=== PATIENT | female | born 1980 | race Caucasian/White ===

== ENCOUNTER 2018-10-04 18:47 | Emergency (ER) | payer MEDICAID, OTHER ==
[~2018-10-04] VITALS: Ht 157.5 cm; Wt 61.7 kg
[2018-10-04 19:11] VITALS: Ht 157.5 cm; Wt 61.7 kg
[2018-10-04] MEDS ORDERED: morphine 4 MG/ML VIAL IV STA (19:19)
[2018-10-04] MEDS ORDERED: SODIUM CHLORIDE 0.9% 1L BAG IV* STA (19:19)
[2018-10-04] MEDS ORDERED: KETOROLAC 15 MG INJ IV STA (19:19)
[2018-10-04] MEDS ORDERED: ONDANSETRON 4 MG INJ IV STA (19:19)
[2018-10-04] MEDS ORDERED: ACETAMINOPHEN 325 MG TAB PO STA (19:19)
[2018-10-04] MEDS ORDERED: CEFTRIAXONE 1 GM/50 ML (PMX) 50 ML IVPB ONE (19:30)
--- NOTE | 2018-10-04 19:41 | ERD ---
ER Documentation Chief Complaint Chief Complaint C/O WORSENING LT FLANK PAIN, LYN AND FEVER X3 DAYS HPI During the patient's encounter translation services were utilized Language: [place] Source: In person this is a 38-year-old female remote history of pyelonephritis who presents to the emergency room with 4 days of symptoms including dysuria urgency and frequency now with constant left flank pain that is 8 out of 10. Associated fever. Mild headache and mild nausea noted. No rash, no neck stiffness. She denies any cough or shortness of breath, no pleuritic pain. She denies any right lower quadrant abdominal pain. ROS All systems reviewed and are negative except as per history of present illness. Medications Home Meds Active Scripts Ciprofloxacin Hcl* (Ciprofloxacin Hcl*) 500 Mg Tablet, 500 MG PO BID for 10 Days, TAB Prov:FAUSTINO MINAYA MD 10/04/18 Ibuprofen* (Motrin*) 800 Mg Tab, 800 MG PO Q6H PRN for PAIN AND OR ELEVATED TEMP, #30 TAB Prov:FAUSTINO MINAYA MD 10/04/18 Ondansetron (Ondansetron Odt) 4 Mg Tab.rapdis, 4 MG PO Q6H PRN for NAUSEA AND/OR VOMITING, #10 TAB Prov:FAUSTINO MINAYA MD 10/04/18 Hydrocodone/Acetaminophen ([place] 5-325 Tablet) 1 Each Tablet, 1 TAB PO Q6H PRN for PAIN, #7 TAB Prov:FAUSTINO MINAYA MD 10/04/18 Allergies Allergies: Coded Allergies: No Known Allergy (Unverified , 10/04/18) FmHx Family History: No diabetes Physical Exam Vitals Vital Signs Date Temp Pulse Resp B/P (MAP) Pulse Ox O2 O2 Flow FiO2 Time Delivery Rate 10/04/18 99.1 100 19 103/67 99 Room Air 22:13 (79) 10/04/18 100.4 97 19 105/74 99 Room Air 20:58 (84) 10/04/18 99.9 108 22 105/78 98 Room Air 19:59 (87) 10/04/18 103.0 19:30 10/04/18 103.7 122 22 104/61 99 19:11 (75) Physical Exam General: Uncomfortable, tearful, hyperventilating Head: Normocephalic, atraumatic. Eyes: Pupils equally reactive, EOM intact ENT: Moist mucous membranes Neck: Supple, no lymphadenopathy Respiratory: Lungs clear bilaterally, no distress Cardiovascular: Tachy, no murmurs, rubs, or gallops Abdominal: Soft, non-tender, non-distended, no peritoneal signs Back: Left CVAT : Deferred MSK: No edema, no unilateral swelling, 5/5 strength Neurologic: Alert and oriented, moving all extremities, normal speech, no focal weakness, no cerebellar signs Skin: No rash Psych: Normal mood Result Diagram: 10/04/18192710/04/181927 Results 24 hrs Laboratory Tests Test 10/04/18 19:28 10/04/18 19:30 10/04/18 19:37 10/04/18 21:58 White Blood Count 8.4 10^3/ul Red Blood Count 4.74 10^6/ul Hemoglobin 13.1 g/dl Hematocrit 40.4 % Mean Corpuscular 85.2 fl Volume Mean Corpuscular 27.6 pg Hemoglobin Mean Corpuscular 32.4 g/dl Hemoglobin Concent Red Cell 13.7 % Distribution Width Platelet Count 236 10^3/UL Mean Platelet 9.1 fl Volume Immature 0.200 % Granulocytes % Neutrophils % 85.6 % Lymphocytes % 9.1 % Monocytes % 4.5 % Eosinophils % 0.2 % Basophils % 0.4 % Nucleated Red 0.0 /100WBC Blood Cells % Immature 0.020 10^3/ul Granulocytes # Neutrophils # 7.2 10^3/ul Lymphocytes # 0.8 10^3/ul Monocytes # 0.4 10^3/ul Eosinophils # 0.0 10^3/ul Basophils # 0.0 10^3/ul Nucleated Red 0.0 10^3/ul Blood Cells # Urine Color YELLOW Urine Clarity CLEAR Urine pH 7.0 Urine Specific 1.017 [place] Urine Ketones NEGATIVE mg/dL Urine Nitrite NEGATIVE mg/dL Urine Bilirubin NEGATIVE mg/dL Urine Urobilinogen 1+ mg/dL Urine Leukocyte 1+ Rachael/ul Esterase Urine Microscopic 8 /HPF RBC Urine Microscopic 45 /HPF WBC Urine Squamous FEW /HPF Epithelial Cells Urine Bacteria FEW /HPF Urine Hemoglobin 1+ mg/dL Urine Glucose NEGATIVE mg/dL Urine Total NEGATIVE mg/dl Protein Sodium Level 141 mmol/L Potassium Level 4.0 mmol/L Chloride Level 106 mmol/L Carbon Dioxide 24 mmol/L Level Anion Gap 11 Blood Urea 9 mg/dl Nitrogen Creatinine 0.70 mg/dl Est Glomerular > 60 mL/min Filtrat Rate mL/min Glucose Level 106 mg/dl Calcium Level 9.6 mg/dl Total Bilirubin 2.0 mg/dl Direct Bilirubin 0.00 mg/dl Indirect Bilirubin 2.0 mg/dl Aspartate Amino 26 IU/L Transf (AST/SGOT) Alanine 16 IU/L Aminotransferase ( ALT/SGPT) Alkaline 76 IU/L Phosphatase Total Protein 8.4 g/dl Albumin 4.3 g/dl Globulin 4.10 g/dl Albumin/Globulin 1.04 Ratio Lipase 314 U/L POC Venous Lactate 1.8 mmol/L POC Beta HCG, NEGATIVE Qualitative Lactic Acid Level 0.9 mmol/L Current Medications Medications Dose Sig/Jessa Start Time Status Last (Trade) Ordered Route PRN Stop Time Admin Dose Reason Admin Sodium 1,850 ml BOLUS OVER 2 10/04/18 DC 10/04/18 Chloride HOURS STAT : 19:30 (NS) IV* 10/04/18 19:21 650 mg ONCE STAT 10/04/18 DC 10/04/18 Acetaminophen PO 19:19 19:30 (Tylenol 10/04/18 19:21 Tab) Morphine 4 mg ONCE STAT 10/04/18 DC 10/04/18 Sulfate IV 19:19 19:30 (morphine) 10/04/18 19:21 Ondansetron 4 mg ONCE STAT 10/04/18 DC 10/04/18 HCl (Zofran IV 19:19 19:30 Inj) 10/04/18 19:21 Ceftriaxone 50 ml @ ONCE ONCE 10/04/18 DC 10/04/18 Sodium 100 mls/hr IVPB 19:30 19:33 10/04/18 19:59 Ketorolac 15 mg ONCE STAT 10/04/18 DC 10/04/18 Tromethamine IV 19:19 19:36 (Toradol) 10/04/18 19:21 0.5 mg ONCE STAT 10/04/18 DC 10/04/18 Hydromorphone IV 19:43 19:47 HCl 10/04/18 19:44 (Dilaudid) Lorazepam 0.5 mg ONCE ONCE 10/04/18 DC 10/04/18 (Ativan) IV 20:00 19:56 10/04/18 20:01 0.5 mg ONCE STAT 10/04/18 DC 10/04/18 Hydromorphone IV 21:13 21:18 HCl 10/04/18 21:15 (Dilaudid) Procedures/MDM EKG, MONITORS, & DIAGNOSTIC IMAGING: EKG: I reviewed and interpreted a 12-lead EKG. Rhythm: Normal sinus rhythm ST Changes: No contiguous ST segment elevations T waves: No contiguous T wave inversions Impression: No evidence of acute cardiac ischemia LAB INTERPRETATION: I reviewed the laboratory testing and it shows urinalysis consistent with UTI. Nonspecific bilirubin elevation but nonobstructive hepatobiliary profile. Lipase is 300, nonspecific. MEDICAL DECISION MAKING: Patient's presentation is very consistent with acute pyelonephritis. The patient has urinary symptoms with constant left flank pain and CVAT. No colicky pain to suggest ureteral colic. Patient has Sirs criteria with possible source. A code sepsis was called from triage. Patient will receive appropriate fluid resuscitation, antipyretics, blood cultures prior to antibiotics. A dose of ceftriaxone provided. If the patient's symptoms are improving and her laboratory testing is reassuring outpatient treatment would be appropriate given her age and limited comorbidities. ER COURSE: * Laboratory testing was suggestive of urinary tract infection. Low concern for hepatobiliary process. The patient's pain is left flank and consistent with urinary process rather than hepatobiliary process. Patient's pain improved with fluids and pain medication. First dose of ceftriaxone provided. * At this point the patient will likely do well on an outpatient basis. Pain is well controlled. CONSULTATION: None DISPOSITION PLAN: The patient does not have an identifiable emergent medical condition that warrants inpatient hospitalization at this time. The patient is deemed safe for discharge with outpatient follow-up. We discussed follow up with the patient's primary care doctor within 24 to 48 hours as needed. We also discussed return to the emergency room for worsening symptoms or worsening condition. Outpatient referral: None required Discharge Medications: Cipro, [place], Zofran, Motrin NARCOTIC MEDICATION: The patient has been prescribed a narcotic medication during this encounter. The patient has been warned about the use of narcotics. The patient should not drive or operate heavy machinery while taking this medication. The patient was also warned about the addictive properties of narcotic medications. Narcan prescription was NOT provided given the following criteria: 1. No more than 5 tablets of [place] 10 mg or 10 tablets of [place] 5 mg were prescribed. 2. Concomitant opiate and benzodiazepine prescriptions were not provided. 3. There is no obvious evidence of prior history of opiate abuse or overdose. Departure Diagnosis: Primary Impression: Pyelonephritis Additional Impression: Flank pain Condition: Stable FAUSTINO MINAYA MD October 04, 2018 19:41
[2018-10-04] MEDS ORDERED: HYDROmorphONE 0.5 MG/0.5 ML SYG IV STA (19:43)
[2018-10-04] MEDS ORDERED: LORAZEPAM 2 MG INJ IV ONE (20:00)
[2018-10-04] MEDS ORDERED: HYDROmorphONE 1 MG/ML SYG IV STA (21:13)
[2018-10-04] MEDS ORDERED: ONDA4TAB14 PO (22:30)
[2018-10-04] MEDS ORDERED: HYDR-4011 PO (22:30)
[2018-10-04] MEDS ORDERED: IBUP800T48 PO (22:30)
[2018-10-04] MEDS ORDERED: CIPR500T4 PO (22:30)
[2018-10-04 23:05] VITALS: BP 110/79; PULSE 100; RESP 20
--- NOTE | 2018-10-07 15:04 | RADRPT ---
Vent Rate: 108 bpm RR Interval: 0 msec ID Interval: 118 msec QRS Duration: 70 msec QT Interval: 322 msec QTC Interval: 431 msec P-R-T [place]: 52 - 38 - 5 degrees Sinus tachycardia Otherwise normal ECG Electronically Signed By: [facility]
== END 2018-10-04 23:07 | disposition home or self-care (01) ==
LOC: E/R 18:47
DX: N12 Tubulo-interstitial nephritis, not specified as acute or chronic (principal)
CPT/HCPCS: 36415; 80053; 81001; 81025; 83605; 83690; 85025; 87040; 87086; 93005; 96374; 96375; 96376; J0696; J1170; J1885; J2060; J2270; J2405; J7030; Z7502; Z7610